=== PATIENT | male | born 2000 | race Caucasian/White ===

== ENCOUNTER 2025-02-18 10:58 | Emergency (ER) | payer OTHER ==
[2025-02-18 12:00] LABS: #Basophils 0.03 10x3/uL (0.0-0.2); #Eosinophils 0.39 10x3/uL (0.0-0.7); #Monocytes 0.72 10x3/uL (0.11-0.59); #Neutrophils 4.68 10x3/uL (1.40-6.50); %Basophils 0.4 % (0.0-1.0); %Eosinophils 5.2 % (0.0-10.0); %Lymphocytes 22.0 % (21.0-51.0); %Monocytes 9.6 % (0.0-10.0); %Neutrophils 62.7 % (42.0-75.0); Hematocrit 41.9 % (42.0-52.0); Hemoglobin 14.7 g/dL (14.0-18.0); Mean Corpuscular Hemoglobin 30.9 pg (27.0-31.0); Mean Corpuscular Volume 88.2 fL (78.0-98.0); Platelet Count 333 10x3/uL (130-400); Red Blood Cell (RBC) Count 4.75 mill/uL (4.70-6.10); White Blood Cell (WBC) Count 7.47 10x3/uL (4.8-10.8)
[2025-02-18 12:14] LABS: ALT (SGPT) 50 U/L (Less than 45); AST (SGOT) 35 U/L (11-34); Albumin 4.7 g/dL (3.1-4.5); Alkaline Phosphatase 79 U/L (40-110); Anion Gap 8 mmol/L (10-20); BUN (Urea Nitrogen) 17 mg/dL (8.9-20.6); Bilirubin, Total 0.3 mg/dL (0.3-1.2); CK (CPK) 117 U/L (30-200); Calc. Creatinine Clearance 0 mL/min (70-130); Calcium 10.1 mg/dL (7.8-10.44); Carbon Dioxide 25 mmol/L (22-29); Chloride 109 mmol/L (98-107); Globulin 3.2 g/dL (2.4-3.5); Glucose 100 mg/dL (70-105); Lipase 17 U/L (8-78); Potassium 4.2 mmol/L (3.5-5.1); Sodium 138 mmol/L (136-145)
[2025-02-18] MEDS ORDERED: Ondansetron PF 4 MG/2 ML Vial ONE (12:43)
[2025-02-18 13:05] LABS: Bacteria/HPF None Seen HPF (None Seen); CAUTI Indications for Culture Pelvic or flank pain; Glucose, Urine (Dipstick) Normal (Negative); Leukocyte Negative Leu/uL (Negative); Protein, Urine (Dipstick) Negative (Neg-Trace); Specific Gravity, Urine 1.020 (1.002-1.036); WBC/HPF 0-3 HPF (0-3)
[2025-02-18 13:06] LABS: Urine Culture Reflex No No
== END 2025-02-18 14:35 | disposition home or self-care (01) ==
LOC: ERS 10:58
DX: N13.2 Hydronephrosis with renal and ureteral calculous obstruction (principal); R94.5 Abnormal results of liver function studies; Z55.6 Problems related to health literacy
CPT/HCPCS: 74176; 80053; 81001; 82550; 83690; 85025; 87086; 96374; 96375; J2270; J2405